=== PATIENT | female | born 1990 | race Caucasian/White ===

== ENCOUNTER 2017-06-28 09:38 | Emergency (ER) | payer OTHER ==
[2017-06-28 10:22] VITALS: BP 106/76
--- NOTE | 2017-06-28 10:35 | UC ---
Eye Complaint HPI - HPI Summary HPI Summary: patient was scratched in the right eye by a cat last night a 2300. woke up this am with pain in the eye, redness, tearing and swelling of the lids. She denies any decreased vision or blurred vision. feels like the pain is in the back of the eye. - History of Current Complaint Chief Complaint: UCEye Stated Complaint: SCRATCH IN RIGHT EYE Time Seen by Provider: 06/28/17 10:12 Hx Obtained From: Patient Hx Last Menstrual Period: 02/02/15 ?: No Onset/Duration: Sudden Onset, Lasting Hours Severity Initially: Severe Severity Currently: Severe Pain Intensity: 8 Location of Injury: Conjunctiva, Globe, Eye Lid (lower), Eye Lid (upper), Sclera Character: Sharp, Foreign Body Sensation Aggravating Factor(s): Light, Blinking, Ultraviolet Exposure Alleviating Factor(s): Nothing Associated Signs And Symptoms: Positive: Photophobia, Drainage (Clear), Swelling - Risk Factors Penetrating Injury Risk Factor: Projectile Acute Glaucoma Risk Factors: Eye Inflammation, Eye Trauma - Allergies/Home Medications Allergies/Adverse Reactions: Allergies Allergy/AdvReac Type Severity Reaction Status Date / Time environmental allergy Allergy Congestion Uncoded 06/28/17 10:11 Home Medications: Home Medications ALPRAZolam TAB* [Xanax TAB*] 1 - 2 tab DAILY 06/28/17 [History Confirmed ] PMH/Surg Hx/FS Hx/Imm Hx Previously Healthy: Yes - Surgical History Surgical History: Yes Surgery Procedure, Year, and Place: Tonsils. WISDOM TEETH EXTRACTIONS. DEC 2014 - Family History Known Family History: Positive: Hypertension - Social History Alcohol Use: Occasionally Substance Use Type: None Smoking Status (MU): Former Smoker Type: Cigarettes Amount Used/How Often: 6 cigarettes per day Length of Time of Smoking/Using Tobacco: 5 YRS Have You Smoked in the Last Year: Yes Review of Systems Constitutional: Negative Skin: Negative Eyes: Drainage, Eye Redness, Photophobia ENT: Negative Respiratory: Negative Cardiovascular: Negative Gastrointestinal: Negative Genitourinary: Negative Motor: Negative Neurovascular: Negative Musculoskeletal: Negative Neurological: Negative Psychological: Negative Is Patient Immunocompromised?: No All Other Systems Reviewed And Are Negative: Yes Physical Exam Triage Information Reviewed: Yes Vital Signs: Initial Vital Signs Temp 98.2 F 06/28/17 10:12 Pulse 82 06/28/17 10:12 Resp 16 06/28/17 10:12 BP 106/76 06/28/17 10:12 Pulse Ox 100 06/28/17 10:12 Vital Signs Reviewed: No Eyes: Positive: Conjunctiva Inflamed, Discharge, Other: - swelling of upper and lower lids, conjucntiva inflammed, PERRLA ENT Exam: Normal Dental Exam: Normal Neck exam: Normal Respiratory Exam: Normal Respiratory: Positive: Chest non-tender, Lungs clear, Normal breath sounds Cardiovascular Exam: Normal Cardiovascular: Positive: RRR, No Murmur, Pulses Normal Abdominal Exam: Normal Abdomen Description: Positive: Nontender, No Organomegaly, Soft Bowel Sounds: Positive: Present Musculoskeletal Exam: Normal Musculoskeletal: Positive: Strength Intact, ROM Intact, No Edema Neurological Exam: Normal Neurological: Positive: Alert, Muscle Tone Normal Psychological Exam: Normal Skin Exam: Normal Eye Complaint Course/Dx - Course Course Of Treatment: hx obtained, exam performed, meds reviewed, sent to [facility] ER for full eye evaluation - Differential Dx/Diagnosis Differential Diagnosis/HQI/PQRI: Conjunctivitis, Corneal Abrasion, Foreign Body , Penetrating Injury, Periorbital Cellulitis, Orbital Cellulitis Provider Diagnoses: cat scratch to right eye. eye swelling. conjunctivitis of right eye - Physician Notification/Consults Instructed by Provider To: MD Will See In ED - sent to [facility] ER via transfer center Discharge - Sign-Out/Discharge Documenting (check all that apply): Discharge, Post-Discharge Follow Up - Discharge Plan Condition: Stable Disposition: HOME Referrals: Non Staff,Doctor [Primary Care Provider] - Additional Instructions: 1. Report to [facility] for further evaluation of your eye injury. - Billing Disposition and Condition Condition: STABLE Disposition: HOME
== END 2017-06-28 10:50 | disposition home or self-care (01) ==
LOC: UCCORT 09:38
DX: S00.211A Abrasion of right eyelid and periocular area, initial encounter (principal); W55.03XA Scratched by cat, initial encounter; Y93.84 Activity, sleeping; Y92.003 Bedroom of unspecified non-institutional (private) residence as the place of occurrence of the external cause; H10.9 Unspecified conjunctivitis; Z87.891 Personal history of nicotine dependence
CPT/HCPCS: 99212; G0463